=== PATIENT | female | born 1985 | race Caucasian/White ===

== ENCOUNTER 2018-12-11 16:07 | Emergency (ER) | payer MEDICAID ==
[~2018-12-11] VITALS: Ht 157.5 cm; Wt 86.2 kg
[~2018-12-11 16:07] MED LIST: IBUPROFEN
[2018-12-11 16:19] VITALS: BP 108/68
--- NOTE | 2018-12-11 16:26 | NUR ---
ER AT BEDSIDE
--- NOTE | 2018-12-11 16:30 | NUR ---
PT BIB SELF C/O SPIDER BITE 2 DAYS AGO. RED, ITCHING PIMPLES ALL OVER THE BODY. PT DENIES PAIN, N/V OR FEVER. VSS.
[2018-12-11] MEDS ORDERED: predniSONE 20 MG TAB PO ONE (16:35)
[2018-12-11 17:01] VITALS: BP 108/68
--- NOTE | 2018-12-11 17:01 | NUR ---
Patient discharged with v/s stable. Written and verbal after care instructions given and explained. Patient alert, oriented and verbalized understanding of instructions. Ambulatory with steady gait. All questions addressed prior to discharge. ID band removed. Patient advised to follow up with PMD. Rx of PREDNISONE, DIPHENHYDRAMINE, AND NEOSPORIN given. Patient educated on indication of medication including possible reaction and side effects. Opportunity to ask questions provided and answered.
== END 2018-12-11 17:01 | disposition home or self-care (01) ==
LOC: MED 16:07
DX: S50.862A Insect bite (nonvenomous) of left forearm, initial encounter (principal); S50.861A Insect bite (nonvenomous) of right forearm, initial encounter; S80.862A Insect bite (nonvenomous), left lower leg, initial encounter; S80.861A Insect bite (nonvenomous), right lower leg, initial encounter; W57.XXXA Bitten or stung by nonvenomous insect and other nonvenomous arthropods, initial encounter; Y93.89 Activity, other specified; Y92.89 Other specified places as the place of occurrence of the external cause; Y99.8 Other external cause status
CPT/HCPCS: 81025; 99283; J7512

== ENCOUNTER 2021-01-24 02:24 | Emergency (ER) | payer MEDICAID ==
[~2021-01-24] VITALS: Ht 154.9 cm; Wt 81.6 kg
[2021-01-24 02:35] VITALS: BP 120/70
--- NOTE | 2021-01-24 02:40 | NUR ---
AMBULATED TO LOBBY. URINE PROVIDED
--- NOTE | 2021-01-24 02:45 | NUR ---
PATIENT BIB SELF FOR C/O GENERALIZED ABDOMINAL PAIN WITH BROWNISH VAGINAL DISCHARGE X 4 DAYS. PER PATIENT ALSO HAD GROWTH IN ABDOMINAL GIRTH OVER THE PAST FEW MONTHS. PATIENT STATES HAS HAD INTERMITTENT N/V OVER THE PAST FEW MOTHS WELL. PATIENT BELIVES IT IS STRESS INDUCED. PATIENT STATES L SIDED DISCOMFORT UPON PALPATION OF PELVIS. SEE COMPLETE ASSESSMENT FOR FUTHER DETAILS. MEDHX: L OVARIAN CYST NKA
--- NOTE | 2021-01-24 02:45 | NUR ---
AMBULATED TO BED #11
--- NOTE | 2021-01-24 02:50 | NUR ---
Blood for labwork drawn by LAB TEACH. Patient tolerated well.
[2021-01-24 02:59] LABS: APPEARANCE,URINE SL CLOUDY (CLEAR); BILIRUBIN,URINE NEGATIVE (NEGATIVE); BLOOD, URINE 3+ (NEGATIVE); COLOR,URINE YELLOW (YELLOW); LEUKOCYTE ESTERASE ,URINE NEGATIVE (NEGATIVE); NITRITE, URINE NEGATIVE (NEGATIVE); PH,URINE 5.5 (5.0-9.0); UGLUCOSE NEGATIVE (NEGATIVE)
--- NOTE | 2021-01-24 03:00 | NUR ---
ERMD AT BEDSIDE FOR MEDICAL EVALUATION.
[2021-01-24 03:01] LABS: BASOPHILS # (AUTO) 0.1 K/uL (0.00-0.22); BASOPHILS % (AUTO) 0.9 % (0.0-2.0); EOSINOPHILS % (AUTO) 0.7 % (0.0-4.0); HEMATOCRIT 36.1 % (36-48); HEMOGLOBIN 11.8 g/dL (12.0-16.0); LYMPHOCYTES # (AUTO) 1.7 K/uL (2.5-16.5); LYMPHOCYTES % (AUTO) 26.7 % (20.5-51.1); MEAN CORPUSCULAR HEMOGLOBIN 28 pg (27-31); MEAN CORPUSCULAR HGB CONC 33 g/dL (33-37); MEAN CORPUSCULAR VOLUME 84.7 fL (80-94); MONOCYTES # (AUTO) 0.5 K/uL (0.8-1.0); MONOCYTES % (AUTO) 8.1 % (1.7-9.3); NEUTROPHILS # (AUTO) 3.9 K/uL (1.8-7.7); NEUTROPHILS % (AUTO) 63.6 % (42.2-75.2); PLATELET COUNT (AUTO) 346 K/uL (140-450); RED BLOOD CELL COUNT(AUTO) 4.26 MIL/uL (4.20-5.40); RED CELL DISTRIBUTION WIDTH 14.4 % (11.6-13.7); WHITE BLOOD COUNT (AUTO) 6.2 K/uL (4.8-10.8)
--- NOTE | 2021-01-24 03:06 | NUR ---
US AT BEDSIDE.
[2021-01-24 03:15] LABS: ALBUMIN 3.7 g/dL (3.4-5.0); ANION GAP 9.8 (8-16); CARBON DIOXIDE 29.7 mmol/L (21-32); CREATININE 0.8 mg/dL (0.6-1.3); POTASSIUM 3.5 mmol/L (3.5-5.1); TOTAL BILIRUBIN 0.8 mg/dL (0.0-1.0)
[2021-01-24 03:50] LABS: RBC,URINE 0-5 /HPF (0-5); WBC,URINE 0-5 /HPF (0-5)
--- NOTE | 2021-01-24 05:45 | NUR ---
ERMD AT BEDSIDE TO REVIEW RESULTS WITH PATIENT.
[2021-01-24] MEDS ORDERED: SULF-58 PO (05:50)
[2021-01-24] MEDS ORDERED: IBUP-2213 PO (05:50)
[2021-01-24] MEDS ORDERED: MIRABULK PO (05:50)
[2021-01-24 06:30] VITALS: BP 122/70
--- NOTE | 2021-01-24 06:30 | NUR ---
Patient discharged with v/s stable. Written and verbal after care instructions given and explained. Patient alert, oriented and verbalized understanding of instructions. Ambulatory with steady gait. All questions addressed prior to discharge. ID band removed. Patient advised to follow up with PMD. Rx of MIRALAX, IBUPROFEN, BACTRIM given. Patient educated on indication of medication including possible reaction and side effects. Opportunity to ask questions provided and answered.
== END 2021-01-24 06:30 | disposition home or self-care (01) ==
LOC: MED 02:24
DX: N39.0 Urinary tract infection, site not specified (principal); N83.201 Unspecified ovarian cyst, right side; Z79.899 Other long term (current) drug therapy
CPT/HCPCS: 36415; 76856; 80053; 81001; 81025; 84703; 85025; 87086; 99284

== ENCOUNTER 2021-05-20 17:55 | Observation (INO) | payer MEDICAID ==
[~2021-05-20] VITALS: Ht 157.5 cm; Wt 93.0 kg
[~2021-05-20 17:55] MED LIST changes: +IBUP-2213 PO; +MIRABULK PO; +SULF-58 PO
== END 2021-05-20 20:00 | disposition left against medical advice (07) ==
LOC: MLD 17:55
PROVIDERS: ADMIT Obstetrics & Gynecology; ATTEND Obstetrics & Gynecology
DX: O36.8120 Decreased fetal movements, second trimester, not applicable or unspecified (principal); Z53.21 Procedure and treatment not carried out due to patient leaving prior to being seen by health care provider; Z3A.25 25 weeks gestation of pregnancy
CPT/HCPCS: G0378; G0379; 59025

== ENCOUNTER 2021-06-27 14:14 | Emergency (ER) | payer MEDICAID ==
[~2021-06-27] VITALS: Ht 157.5 cm; Wt 95.3 kg
[2021-06-27 14:29] VITALS: BP 123/83
--- NOTE | 2021-06-27 14:30 | NUR ---
PATIENT REFUSING CARE AND ELOPED FROM FACILITY
== END 2021-06-27 14:30 | disposition left against medical advice (07) ==
LOC: MED 14:14
DX: R10.9 Unspecified abdominal pain (principal)
CPT/HCPCS: 99284